=== PATIENT | female | born 1950 | race Caucasian/White ===

== ENCOUNTER → 2019-01-04 | Outpatient (CLI) | payer MEDICARE, OTHER ==
--- NOTE | 2019-01-04 11:41 | KCIC ---
MR of the left knee HISTORY: Left knee pain. Osteoarthritis. Injury October 2018. TECHNIQUE: Routine multiplanar sequences are obtained. FINDINGS: Degenerative tear of the medial meniscus. There is a flap component with tissue displaced into the tibial recess. Medial subluxation of the meniscus. Degenerative tear of the lateral meniscus. Anterior cruciate ligament demonstrates a thin morphology, but no evidence of rupture or displacement. Posterior cruciate ligament is intact. Medial collateral ligament is intact. Iliotibial band unremarkable. Fibular collateral ligament, biceps femoris tendon and popliteus tendon are intact. Extensor mechanism is intact. No acute retinacular injury. Small joint effusion. Severe cartilage loss at the patellofemoral joint with subchondral cysts. Severe cartilage loss at the medial joint compartment. Severe cartilage loss at the lateral joint compartment. Marginal osteophytes. Subchondral marrow edema at the medial tibial plateau with a small incomplete nondisplaced subchondral fracture. IMPRESSION: 1. Medial meniscal tear. 2. Lateral meniscal tear. 3. Incomplete nondisplaced subchondral fracture of the medial tibial plateau. This is most likely a stress fracture unless there is a history of trauma to suggest otherwise. 4. Severe primary osteoarthritis. Electronically signed by: Jose Castillo MD (01/04/2019 11:39 AM) [facility]
== END | disposition home or self-care (01) ==
LOC: KCIC MRI 09:19
PROVIDERS: ATTEND Physician Assistant
DX: S83.242A Other tear of medial meniscus, current injury, left knee, initial encounter (principal); S83.282A Other tear of lateral meniscus, current injury, left knee, initial encounter; S83.192A Other subluxation of left knee, initial encounter; M84.462A Pathological fracture, left tibia, initial encounter for fracture; M17.12 Unilateral primary osteoarthritis, left knee; M25.462 Effusion, left knee; M25.762 Osteophyte, left knee; X58.XXXA Exposure to other specified factors, initial encounter; Y93.89 Activity, other specified; Y92.89 Other specified places as the place of occurrence of the external cause; Y99.8 Other external cause status
CPT/HCPCS: 73721

== ENCOUNTER → 2021-10-21 | Outpatient (CLI) | payer MEDICARE, OTHER ==
--- NOTE | 2021-10-21 12:42 | KCIC ---
EXAMINATION: Magnetic resonance imaging (MRI) of the lumbar spine without contrast 10/21/2021 10:10 AM HISTORY: Back pain. Chronic low back pain for years. TECHNIQUE: Multiplanar multi-weighted MRI of the lumbar spine was performed without intravenous contr ast using the standard lumbar spine protocol. Contrast information: None administered. COMPARISON: None available. FINDINGS: There is extra convex scoliosis of the lumbar spine centered at L3. There is right lateral listhesis of L4 on L5. There is 3 mm retrolisthesis of L1 on L2. 3 mm retrolisthesis of L2 on L3 and L3 on L4. There is 3 mm retrolisthesis of L5 on S1. There is moderate to advanced disc height loss at L1-L2 and L2-L3 asymme tric to the right at L1-L2 and asymmetric to the left at L2-L3. Moderate anterior marginal osteophyto sis. Modic type I endplate degenerative changes are identified at L1-L2. Vertebral bodies demonstrate normal signal intensity on all sequences. There are no compression fractures. The conus medullaris terminates at the level of L1. There is disc desiccation at all levels of the lumbar spine. The dist al spinal cord signal intensity is normal. Limited views of the abdomen and pelvis show no soft tis mariza abnormality. The aorta is normal. Simple cyst in the right hepatic lobe measures 1.1 cm. L1-L2: There is a circumferential disc bulge with right central disc extrusion. Mild right and modera te left facet arthropathy. Severe right and moderate left neuroforaminal stenosis. Mild spinal canal stenosis. There is mild right lateral recess stenosis. L2-L3: There is a posterior disc osteophyte complex asymmetric to the left. Moderate left and moderat e facet arthropathy. Left far lateral disc protrusion. Severe left and moderate right neural foramina l stenosis. Mild spinal canal stenosis. There is left lateral recess stenosis. L3-L4: There is a circumferential disc bulge asymmetric to the left. Moderate to severe left and mode rate right facet arthropathy. Severe left and mild to moderate right neural foraminal stenosis. Mild spinal canal stenosis. L4-L5: There is a circumferential disc bulge asymmetric to the right with right foraminal disc protru shira. Severe facet arthropathy ligamentum flavum infolding. Severe bilateral neuroforaminal stenosis. Moderate spinal canal stenosis with right lateral recess stenosis. L5-S1: Is a disc bulge asymmetric to the right with right foraminal and far lateral disc protrusion. Moderate facet arthropathy. Severe right and moderate left neural foraminal stenosis. Mild right late ral recess stenosis. IMPRESSION: Moderate to advanced degenerative changes of the lumbar spine as described in detail above. Electronically signed by: Agata Baker MD (10/21/2021 12:39 PM) [id number]
== END ==
LOC: KCIC MRI 09:56
PROVIDERS: ATTEND Family Medicine
DX: M47.816 Spondylosis without myelopathy or radiculopathy, lumbar region (principal); M48.07 Spinal stenosis, lumbosacral region; M51.27 Other intervertebral disc displacement, lumbosacral region; M48.8X7 Other specified spondylopathies, lumbosacral region; M43.17 Spondylolisthesis, lumbosacral region; K76.89 Other specified diseases of liver; M25.78 Osteophyte, vertebrae
CPT/HCPCS: 72148